=== PATIENT | male | born 1990 | race Caucasian/White ===

== ENCOUNTER 2017-04-01 18:24 | Emergency (ER) | payer SELFPAY, MEDICAID | END 2017-04-02 17:47 | disposition home or self-care (01) | LOC: E/R 04-02 17:47 → FTE 18:24 | DX: T16.1XXA Foreign body in right ear, initial encounter (principal); X58.XXXA Exposure to other specified factors, initial encounter; Y92.9 Unspecified place or not applicable | CPT/HCPCS: 69200; 99283-25 ==